=== PATIENT | female | born 1955 | race Caucasian/White ===

== ENCOUNTER 2016-12-27 23:26 | Emergency (ER) | payer MEDICARE, BC ==
[~2016-12-27] VITALS: Ht 162.6 cm; Wt 54.0 kg
[2016-12-27 23:35] VITALS: BP 145/91; PULSE 95; RESP 18; TEMP 98.6; O2SAT 90
--- NOTE | 2016-12-27 23:54 | PD ---
HPI Chief Complaint: shortness of breath Time Seen by Provider: 23:39 Travel History International Travel<30 days: No Contact w/Intl Traveler<30days: No Traveled to known affect area: No History of Present Illness HPI 61-year-old female complains of wheezing and shortness of breath. Patient has history of COPD on home O2. Patient normally on 2 L nasal cannula however because of shortness of breath she increase the oxygen up to 4 L nasal cannula today. Patient states that she had dry cough. Patient has been using nebulizer about 4 times a day at home. Patient is a smoker. Patient denies any fever chills. Patient denies any chest pain. Patient has history hypertension and hyperlipidemia. Patient also has history of thoracic aortic aneurysm. FOR[facility]LY [facility] Social History Tobacco Use: No Allergies-Medications (Allergen,Severity, Reaction): Coded Allergies: No Known Allergies (Unverified , 12/27/16) Reported Meds & Prescriptions Reported Meds & Active Scripts Active Prednisone 20 Mg Tab 20 Mg PO BID Levaquin (Levofloxacin) 500 Mg Tablet 1 Tab PO DAILY Reported Amitriptyline (Amitriptyline HCl) 10 Mg Tab 10 Mg PO HS Duoneb (Ipratropium-Albuterol Neb) 0.5-2.5 Mg/3 Ml Neb 1 Nebule INH Q6HR NEB PRN Centrum Silver Women Tablet (Multivit-Min/Iron/Folic/Lutein) 1 Each Tablet 1 Tab PO DAILY Hydrocodone-Acetaminophen 7.5-300 Mg Tab 1 Tab PO Q4H PRN Aspirin 81 Low Dose (Aspirin) 81 Mg Chew 81 Mg CHEW DAILY Diazepam 5 Mg Tab 5 Mg PO BID Advair Diskus Inh (Fluticasone-Salmeterol Inh) 500-50 Mcg/Blist Aer 1 Puff INH BID Rinse mouth after use. Spiriva Handihaler (Tiotropium Inh) 18 Mcg Cap 18 Mcg INH DAILY 1 capsule = 18 mcg Amlodipine (Amlodipine Besylate) 5 Mg Tab 5 Mg PO DAILY Simvastatin 10 Mg Tab 10 Mg PO HS Lisinopril 10 Mg Tab 10 Mg PO DAILY Review of Systems General / Constitutional: No: Fever Eyes: No: Visual changes HENT: No: Headaches Cardiovascular: No: Chest Pain or Discomfort Respiratory: Positive: Shortness of Breath, Wheezing Gastrointestinal: No: Abdominal Pain Genitourinary: No: Dysuria Musculoskeletal: No: Pain Skin: No Rash Neurologic: No: Weakness Psychiatric: No: Depression Endocrine: No: Polydipsia Hematologic/Lymphatic: No: Easy Bruising Physical Exam Narrative GENERAL: Well-nourished, well-developed patient. SKIN: Focused skin assessment warm/dry. HEAD: Normocephalic. EYES: No scleral icterus. No injection or drainage. NECK: Supple, trachea midline. No JVD or lymphadenopathy. CARDIOVASCULAR: Regular rate and rhythm without murmurs, gallops, or rubs. RESPIRATORY: Patient has moderate to severe expiratory wheezes bilaterally. Few rhonchi at the bases. Decreased breath sounds bilaterally. GASTROINTESTINAL: Abdomen soft, non-tender, nondistended. MUSCULOSKELETAL: No cyanosis, or edema. BACK: Nontender without obvious deformity. No CVA tenderness. Neurologic exam normal. Data Data Last Documented VS Vital Signs Date Time Temp Pulse Resp B/P Pulse Ox O2 Delivery O2 Flow Rate FiO2 12/28/16 00:55 89 20 158/95 95 3 12/28/16 00:12 Nasal Cannula 12/27/16 23:35 98.6 Orders Complete Blood Count With Diff (12/27/16 23:49) Basic Metabolic Panel (Bmp) (12/27/16 23:49) Iv Access Insert/Monitor (12/27/16 23:49) Ecg Monitoring (12/27/16 23:49) Oximetry (12/27/16 23:49) Oxygen Administration (12/27/16 23:49) Chest, Single Ap (12/27/16 23:49) Methylprednisolone So Succ Inj (Solumedr (12/28/16 00:00) Albuterol-Ipratropium Neb (Duoneb Neb) (12/28/16 00:00) Acetamin-Hydrocod 325-7.5 Mg ([place] 7.5 (12/28/16 00:30) Levofloxacin (Levaquin) (12/28/16 00:45) Labs Laboratory Tests Test 12/28/16 00:04 White Blood Count 9.4 TH/MM3 Red Blood Count 5.01 MIL/MM3 Hemoglobin 15.1 GM/DL Hematocrit 47.0 % Mean Corpuscular Volume 93.9 FL Mean Corpuscular Hemoglobin 30.2 PG Mean Corpuscular Hemoglobin 32.2 % Concent Red Cell Distribution Width 14.2 % Platelet Count 222 TH/MM3 Mean Platelet Volume 7.6 FL Neutrophils (%) (Auto) 71.4 % Lymphocytes (%) (Auto) 15.2 % Monocytes (%) (Auto) 9.8 % Eosinophils (%) (Auto) 1.9 % Basophils (%) (Auto) 1.7 % Neutrophils # (Auto) 6.7 TH/MM3 Lymphocytes # (Auto) 1.4 TH/MM3 Monocytes # (Auto) 0.9 TH/MM3 Eosinophils # (Auto) 0.2 TH/MM3 Basophils # (Auto) 0.2 TH/MM3 CBC Comment DIFF FINAL Differential Comment Sodium Level 140 MEQ/L Potassium Level 4.0 MEQ/L Chloride Level 99 MEQ/L Carbon Dioxide Level 37.0 MEQ/L Anion Gap 4 MEQ/L Blood Urea Nitrogen 12 MG/DL Creatinine 0.57 MG/DL Estimat Glomerular Filtration 108 ML/MIN Rate Random Glucose 106 MG/DL Calcium Level 9.5 MG/DL MDM Medical Decision Making Medical Screen Exam Complete: Yes Emergency Medical Condition: Yes Interpretation(s) Last Impressions Chest X-Ray 12/27/16 3070 Signed Impressions: Service Date/Time: Wednesday, December 28, 2016 00:00 - CONCLUSION: No evidence of acute cardiopulmonary disease. Binh Mata MD 1242 AM. CBC within normal limit. BMP with bicarbonate 37.0. Differential Diagnosis Differential diagnosis including acute exacerbation of COPD, bronchitis, pneumonia, PE, pneumothorax. Narrative Course 61-year-old female with wheezing and shortness of breath. History of COPD. Albuterol Atrovent unit dose treatment 3. Solu-Medrol 125 mg IV. Patient states that she is feeling better. Levaquin 750 mg by mouth given. Patient wants to go home. Patient refuses admission. Diagnosis Primary Impression: COPD with acute exacerbation Patient Instructions: General Instructions Additional Instructions: Levaquin as directed. Continue with nebulizer treatment every 4 hours needed. Prednisone as directed. Follow-up with personal physician. Return if worse. Med/Other Pt SpecificInfo: Prescription(s) given Scripts Prednisone 20 Mg Tab20 Mg PO BID #14 TAB Ref 0 Prov:Ronald Gross MD 12/28/16 Levofloxacin (Levaquin)500 Mg Tablet1 Tab PO DAILY #7 Prov:Ronald Gross MD 12/28/16 Disposition: 01 DISCHARGE HOME Condition: Stable Ronald Gross MD Dec 27, 2016 23:54
[2016-12-28] MEDS ORDERED: methylPREDNISolone SOD SUCC 125 MG/2 ML VIAL IVP ONE
[2016-12-28 00:01] VITALS: O2SAT 98
[2016-12-28] MEDS: RESP: ALBUTEROL 2.5 MG/IPRATROPIUM 0.5 MG NEB (SCH) INH ×3 (00:01→00:22)
[2016-12-28 00:22] LABS: AUTOMATED NEUTROPHIL # 6.7 TH/MM3 (1.8-7.7); BASOPHIL # 0.2 TH/MM3 (0-0.2); BASOPHIL % 1.7 % (0.0-2.0); EOSINOPHIL # 0.2 TH/MM3 (0-0.4); EOSINOPHIL % 1.9 % (0.0-4.0); HEMO FLAGS DIFF FINAL; LYMPH % 15.2 % (9.0-44.0); LYMPHOCYTE # 1.4 TH/MM3 (1.0-4.8); MEAN CELL VOLUME 93.9 FL (80.0-100.0); MEAN CORPUSCULAR HEMOGLOBIN 30.2 PG (27.0-34.0); MEAN CORPUSCULAR HGB CONC 32.2 % (32.0-36.0); MONO % 9.8 % (0.0-8.0); NEUT % 71.4 % (16.0-70.0); PLATELET COUNT 222 TH/MM3 (150-450); RED BLOOD COUNT 5.01 MIL/MM3 (4.00-5.30); RED CELL DISTRIBUTION WIDTH 14.2 % (11.6-17.2); WHITE BLOOD COUNT 9.4 TH/MM3 (4.0-11.0)
[2016-12-28] MEDS ORDERED: ACETAMINOPHEN/HYDROcodone 325 MG/7.5 MG TAB PO ONE (00:30)
--- NOTE | 2016-12-28 00:35 | RADRPT ---
EXAM DATE/TIME: 12/28/2016 00:00 [place] COMPARISON: No previous studies available for comparison. INDICATIONS : Shortness of breath. MEDICAL HISTORY : Hypertension. Chronic obstructive pulmonary disease. SURGICAL HISTORY : None. ENCOUNTER: Initial ACUITY: 1 day PAIN SCORE: 0/10 LOCATION: Bilateral chest FINDINGS: A single view of the chest demonstrates the lungs to be symmetrically aerated without evidence of mas s, infiltrate or effusion. The cardiomediastinal contours are unremarkable. Osseous structures are intact. CONCLUSION: No evidence of acute cardiopulmonary disease. Binh Mata MD on December 28, 2016 at 0:34 Board Certified Radiologist. This report was verified electronically.
[2016-12-28] MEDS ORDERED: HYDR-2376 PO (00:41)
[2016-12-28] MEDS ORDERED: SPIRCAP INH (00:41)
[2016-12-28] MEDS ORDERED: IPRASOL INH (00:41)
[2016-12-28] MEDS ORDERED: AMIT10TA6 PO (00:41)
[2016-12-28] MEDS ORDERED: MULT1TAB61 PO (00:41)
[2016-12-28] MEDS ORDERED: LISI10TA3 PO (00:41)
[2016-12-28] MEDS ORDERED: ADVA500A INH (00:41)
[2016-12-28] MEDS ORDERED: DIAZ5TAB PO (00:41)
[2016-12-28] MEDS ORDERED: ASPI81CH3 CHEW (00:41)
[2016-12-28] MEDS ORDERED: SIMV10TA PO (00:41)
[2016-12-28] MEDS ORDERED: AMLO5TAB2 PO (00:41)
[2016-12-28] MEDS ORDERED: LEVOFLOXACIN 750 MG TAB PO ONE (00:45)
[2016-12-28] MEDS ORDERED: LEVA500T20 PO (00:46)
[2016-12-28] MEDS ORDERED: PRED20 PO (00:46)
[2016-12-28 00:55] VITALS: BP 158/95
== END 2016-12-28 00:55 | disposition home or self-care (01) ==
LOC: PHED 23:26
DX: J44.1 Chronic obstructive pulmonary disease with (acute) exacerbation (principal); I10 Essential (primary) hypertension; E78.5 Hyperlipidemia, unspecified; Z99.81 Dependence on supplemental oxygen; Z87.09 Personal history of other diseases of the respiratory system; Z86.79 Personal history of other diseases of the circulatory system
CPT/HCPCS: 71010; 80048; 85025; 94640; 94664; 96374; 99285; J2930